=== PATIENT | male | born 1965 | race Caucasian/White ===

== ENCOUNTER 2017-06-14 02:02 | Emergency (ER) | payer OTHER ==
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
[2017-06-14] MEDS ORDERED: HYDROmorphone 1 mg/mL 1mL Syr IVP STA (02:33)
[2017-06-14] MEDS ORDERED: HYDROmorphone 1 mg/mL 1mL Syr ONE (02:35)
[2017-06-14 02:59] LABS: URINE BILIRUBIN NEGATIVE (NEGATIVE); URINE BLOOD LARGE (NEGATIVE); URINE GLUCOSE (UA) >=1000 mg/dL (NEGATIVE); URINE KETONE TRACE mg/dL (NEGATIVE); URINE PROTEIN TRACE mg/dL (NEGATIVE); URINE UROBILINOGEN 0.2 E.U./dL (0.2 - 1.0)
[2017-06-14 02:59] LABS: % BASOPHILS 1.1 % (0.0-2.0); % EOSINOPHILS 0.9 % (0.0-5.0); % LYMPHOCYTES 29.6 % (20.0-50.0); % MONOCYTES 2.5 % (2.0-10.0); % NEUTROPHILS 65.9 % (40.0-80.0); HEMATOCRIT 44.1 % (41.0-60); HEMOGLOBIN 14.7 gm/dL (12-16); MEAN CELL VOLUME 84.5 fl (80-99); MEAN CORPUSCULAR HEMOGLOBIN 28.2 pg (26.0-30.0); MEAN CORPUSCULAR HGB CONC 33.4 pg (28.0-36.0); MEAN PLATELET VOLUME 8.9 fl; NEUTROPHILE ABSOLUTE 5.9 Th/cmm (1.8-8.0); RED BLOOD COUNT 5.21 Mil/cmm (4.30-5.70)
[2017-06-14 03:03] LABS: INR 0.95 (0.5-1.4); PLATELET COUNT 229 Th/cmm (150-400); PROTHROMBIN TIME (TEST) 9.9 SECONDS (9.5-11.5)
[2017-06-14 03:04] LABS: URINE COLOR BROWN
[2017-06-14 03:07] LABS: URINE RBC 25-50 /hpf (0-5); URINE WBC 0-2 /hpf (0-5)
[2017-06-14 03:07] LABS: ALB/GLOB RATIO 1.3 (1.0-1.8); ALKALINE PHOSPHATASE 69 U/L (34-104); AMYLASE SERUM 32 U/L (29-103); ANION GAP 13.1 (7.0-16.0); BILIRUBIN,TOTAL 0.4 mg/dL (0.3-1.0); BUN - UREA NITROGEN 17 mg/dL (7-25); BUN/CREATININE RATIO 21.3; CALCIUM SERUM 9.7 mg/dL (8.6-10.3); CARBON DIOXIDE 24.5 mEq/L (21.0-31.0); CHLORIDE 101 mEq/L (98-107); CREATININE - SERUM 0.8 mg/dL (0.7-1.3); GLUCOSE 229 mg/dL (70-105); LIPASE 86 U/L (11-82); POTASSIUM SERUM 3.6 mEq/L (3.5-5.1); SGOT 17 U/L (13-39); SGPT/ALT 22 U/L (7-52); SODIUM SERUM 135 mEq/L (136-145)
[2017-06-14 03:08] LABS: URINE BACTERIA OCCASIONAL /hpf (NONE SEEN); URINE EPITHELIAL CELLS NONE SEEN /lpf (FEW)
--- NOTE | 2017-06-14 07:54 | Diagnostic Imaging Report ---
Exam: CT examination abdomen pelvis HISTORY: Pain right flank area. Total DLP equals 810 CTDI equals 13.6 Findings: Multiple contiguous thin section of the abdomen pelvis obtained from lower thorax to pubic symphysis without the administration of oral or intravenous contrast material. No prior studies available comparison. The study demonstrates normal aeration of lung parenchyma the bases. The liver and spleen are normal. The stomach distended with fluid content. The gallbladder is intact. The pancreas is normal. The adrenal glands are normal. There is evidence of for approximately 6 mm calculus within the proximal to mid right ureter with mild right-sided hydronephrosis and proximal right-sided hydroureter. The urinary bladder is intact. The appendix is normal. There is no evidence of diverticular disease of diverticulitis. Degenerative changes of lumbar sacral spine appreciated. No free fluid is noted in the pelvic area. IMPRESSION: 6 mm obstructing calculus in the right upper to mid ureter with right-sided hydronephrosis.
[2017-06-14] MEDS ORDERED: Aspirin 81mg Chewable Tab ONE (09:36)
== END 2017-06-14 05:12 | disposition left against medical advice (07) ==
LOC: ER 02:02
DX: N20.9 Urinary calculus, unspecified (principal); E11.9 Type 2 diabetes mellitus without complications
CPT/HCPCS: 99285; 96374; 96375; 74176; 36415; 85025; 85610; 81001; 82150; 83036; 83690; 80053; J1885; J2405; J1170; Z7610